=== PATIENT | male | born 1985 | race Caucasian/White ===

== ENCOUNTER 2019-06-19 01:03 | Emergency (ER) | payer SELFPAY ==
[2019-06-19 01:06] VITALS: BP 118/83; PULSE 64; RESP 22; TEMP 36.7; O2SAT 98
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
[2019-06-19] MEDS: Benzonatate 100 MG CAP PO (01:31)
[2019-06-19 01:40] VITALS: BP 118/83; PULSE 64; RESP 22; TEMP 36.7; O2SAT 98
== END 2019-06-19 01:35 | disposition home or self-care (01) ==
LOC: ER 01:44
PROVIDERS: Emergency Provider Emergency Medicine; PCP Nurse Practitioner Family
DX: J06.9 Acute upper respiratory infection, unspecified (principal); F17.210 Nicotine dependence, cigarettes, uncomplicated
CPT/HCPCS: 99283

== ENCOUNTER 2021-08-04 03:50 | Outpatient (CLI) | payer SELFPAY ==
[2021-08-04 14:37] LABS: HGB 15.5 g/dL (13.5-17.5); MCH 29.5 pg (27.0-33.0); MCHC 33.7 % (32.0-36.0); MCV 87.6 fL (80-95); MPV 9.6 fL (8.0-11.0); Platelet Count 301 10^3/uL (130-400); RBC 5.25 10^6/uL (4.36-5.78); RDW 11.9 % (11.8-14.1); RDW-SD 38.7 fL; WBC 7.71 10^3/uL (4.4-10.8)
[2021-08-04 15:46] LABS: ALT 21 U/L (16-63); AST 10 U/L (15-37); Albumin 4.8 g/dL (3.4-5.0); Alkaline Phosphatase 73 U/L (46-116); Anion Gap 9.7 mmol/L (3-11); BUN 16 mg/dL (7-18); Bilirubin, Total 0.5 mg/dL (0.2-1.0); CO2 27.3 mmol/L (21.0-32.0); Calcium 9.4 mg/dL (8.5-10.1); Calculated LDL 119 mg/dL (<100); Chloride 105 mmol/L (98-107); Cholesterol 179 mg/dL (<200); Glucose 87 mg/dL (74-106); HDL Cholesterol 46 mg/dL (40-60); Potassium 4.2 mmol/L (3.5-5.1); Sodium 142 mmol/L (136-145); TSH (W/Ref FT4) 1.03 uIU/mL (0.36-3.74); Triglyceride 72 mg/dL (<150)
[2021-08-07 11:14] LABS: Hepatitis C Ab w Rflx HCV PCR Negative (Negative)
[2021-08-07 13:13] LABS: HIV-1/2 Ag & Ab Screen Reactive (Negative)
[2021-08-16 11:30] LABS: HIV 1 Ab Diff Negative (Negative); HIV 2 Ab Diff Negative (Negative)
== END 2021-08-04 03:51 | disposition home or self-care (01) ==
LOC: LBO 03:50
PROVIDERS: PCP Family Medicine; Visit Provider Family Medicine
DX: K62.5 Hemorrhage of anus and rectum (principal); Z11.59 Encounter for screening for other viral diseases; Z13.6 Encounter for screening for cardiovascular disorders; I10 Essential (primary) hypertension; Z11.4 Encounter for screening for human immunodeficiency virus [HIV]
CPT/HCPCS: 36415; 80053; 80061; 85027; 86701; 86702; 86803; 87389; 84443

== ENCOUNTER 2021-10-10 07:27 | Day surgery (SDC) | payer SELFPAY ==
--- NOTE | 2021-10-09 10:07 | PDOC.DSDIS_ITS ---
Discharge Plan Disposition Patient Disposition: HOME Condition: Good Discharge Details Reason For Visit: colon scope Attending Provider: Chanelle Avila Primary Care Provider: Eugenio Peterson Home Meds and New Rx's Prescriptions: No Action 0.2% topical Nifedipine ointment See Rx Instructions GA TID Qty: 2 0RF Rx Instructions: applicator GA three times a day; Called to [facility] polyethylene glycol 3350 17 gram/dose powder 238 g PO ONCE Qty: 238 0RF Rx Instructions: take per colonoscopy instructions bisacodyl [Dulcolax (bisacodyl)] 5 mg tablet,delayed release (DR/EC) 5 mg PO ONCE Qty: 4 0RF Rx Instructions: take per colonoscopy instructions hydrocortisone acetate 25 mg suppository 25 mg GA BID 7 Days Qty: 14 6RF multivitamin [Multiple Vitamins] Tablet 1 tab PO DAILY 0RF ibuprofen 800 MG tablet 800 mg PO TID PRN PRNQty: 90 3RF acetaminophen [Acetaminophen Extra Strength] 500 MG tablet 1,000 mg PO TID Qty: 180 3RF Discharge Instructions Additional Instructions: [facility] Colonoscopy Post- Op Instructions Instructions for Everyone who is given Anesthesia: For your safety, please do the following for the next twenty-four (24) hours: *Do Not operate a motor vehicle (car, truck, motorcycle, etc.) *Do Not drink alcoholic beverages or use any recreational drugs for the first 24 hours or while taking pain medications. The medications in your body may have a reaction that can be dangerous. *Do Not make any important decisions or sign any important papers. Findings: polyps x2 diverticula Grade III hemorrhoids x2 anal fissure In 48 hrs (), start a fiber product such as benefiber or citracel daily. Follow up: 2 week stop hydrocortisone suppository's continue to use nifedipine ointment 1. No lifting over 20 pounds or strenuous activity for the first 24 hours after your procedure. After 24 hours there are no restrictions on your activity but you may feel fatigued for a few days. 2. After you arrive home you may have a light meal and return to your normal diet as you can tolerate it without feeling sick to your stomach. 3. You may have a bloated, gaseous feeling in your belly (abdomen) after a colonoscopy. Passing gas and belching will help. Walking or lying down on your left side with your knees flexed may relieve the discomfort. Call the office at [phone] (Office) or [phone] (Hospital) right away if you notice any of the following: a.Vomiting of blood or ?coffee ground stools?. b.Rectal bleeding 1Tbsp, blood clots or continuous bleeding. c.Severe belly (abdominal) pain. d.A hard distended belly (abdomen) and an inability to pass gas. 4. Please don?t expect to have a normal BM (bowel movement) for 2-3 days after your procedure. 5. If there are questions regarding the findings of your procedure, please contact your doctor 6. If you are unable to contact your doctor with a problem, contact the hospital at [phone]. 7. Continue all your regular medications unless directed otherwise. Pain Relief From Hemorrhoids Hemorrhoid banding itself is not painful, but it is normal for patients to experience a sense of fullness or pressure after the procedure. Tylenol or Ibuprofen usually alleviates any symptoms. Post-Procedure Do's & Don'ts Do?s: ? Take fiber supplements to avoid constipation ? Squeeze your buttocks muscles 10-15 times every two hours ? Take 10-15 deep breaths every 1-2 hours ? Drink plenty of water ? Engage in moderate exercise ? Take a sitz bath ? soaking in a tub of warm water ? after every bowel movement Don?ts: ? Stay seated for more than 2-3 hours ? Rub or scrub the anus too vigorously ? Try to force a bowel movement ? if you cannot go, stop and try again later ? Insert anything into the anus for two weeks ? unless you have been prescribed anorectal medication ? Avoid alcohol, as it can dehydrate you and lead to constipation Occasionally, you may experience bleeding after the hemorrhoid banding p rocedure. Do not be concerned if there is a minimal amount of blood. However, if bleeding continues, lie flat with your bottom higher than your head and apply an ice pack to the area. If the bleeding does not stop within a half-hour, call our office or go to the emergency room. Bleeding complications are uncommon and occur <1% of the time. Additional Tips ? To avoid constipation, take two tablespoons of natural wheat bran, natural oat bran, flax, Benefiber or any over the counter fiber supplement with 7-8 glasses of water. ? I understand the above instructions and have no questions. Signature of Patient or Adult Escort Name of Responsible Adult Escort Signature of Nurse Date/Time Discharge Orders Discharge Orders: Discharge Order (Routine); Ordered 10/09/21 Ordered By: Chanelle Avila
--- NOTE | 2021-10-09 19:12 | W.COLOREPORT ---
Colonoscopy Report Date of procedure: 10/10/21 Pre-op diagnosis general: rectal pain/bleeding/hx of polyps Post-op diagnosis procedure note: other (polyps/diverticula/hemorrhoids/anal fissure) Procedure: CE and hemorrhoid bandingg x3 Surgeon: Chanelle Avila Anesthesia Type: General:No Airway Estimated blood loss (mL): 1 Pathology: other Complications: None Disposition: same day Prep: Miralax/Dulcolax Retraction Time: 10 Procedure Description: After informed consent was obtained the patient was taken to the procedure room and placed in a left decubitous position. Monitors were applied and a time out was done. The patients name, date of , procedure, allergies to medications and metal in their body was reviewed. The patient was then sedated. Once sedated and comfortable a rectal exam was done. External exam does show an anal fissure in the 6oclock position. The scope was then introduced and retrofelexed. X3 Grade III internal hemorrhoids were identified. The scope was then advanced to the cecum w/out difficulty. The TI and appendiceal orifice were identified. The prep was BBPS- 3 in all quandrants for a total of 9. The scope was then slowly retracted over 10 minutes back into the rectum. He has x2 polyps. Each of these is a small, flat, 5 mm polyp. They are each removed with 1 bite of the cold biting forcep. There is 1 in the rectum and another at 20 cm. All specimen is retrieved and no bleeding is noted. He does have minor diverticula throughout the entire colon. There is no signs of active bleeding or infection. The mucosa is otherwise pink and healthy with a normal vascular pattern. Scope was removed. Anal exam was done with the patient still under anesthesia again he has a anal fissure in the 6 o'clock position that shows minimal signs of healing. It does have a sentinel tag associated with this. He also has grade 3 internal hemorrhoids in all 3 columns. These are banded. There is no bleeding noted. Patient was woken up and taken back to Same day surgery in stable condition. The patient tolerated the procedure well and there were no immediate complications. Follow up: The patient should follow up in 5 yrs, path pd, unless they develop changes in bowel habits or other new gastrointestinal complaints.
[2021-10-10] VITALS (8 sets, daily range): BP systolic 120–136; BP diastolic 83–105; PULSE 71–106; RESP 18–24; TEMP 36.4–37.1; O2SAT 95–100; BMI 19.7
[2021-10-10] MEDS: Lactated Ringers 1,000 ML 80 ML IV (08:00)
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
--- NOTE | 2021-10-10 10:10 | BOWEL_PTH ---
PATIENT: Kb Sheikh LOC: [facility] U#:[id number] AGE/SX: 36/M ROOM: RE10/10/[address]: Chanelle Avila : 1985 BED: DIS: 10/10/2021 SPEC #: [id number] RECD: 10/10/21 12:54 STATUS: EMILY REQ #: [id number] TANNA: 10/10/21 10:[address]: Chanelle Avila DEPT: Surgical Specimen RECD BY: Lis Rodríguez ENTERED: 10/10/21 12:55 SP TYPE: Bowel OTHR DR: Eugenio Peterson Tissues: 1 - BIOPSY BOWEL 2 - BIOPSY BOWEL Procedures: GROSS AND MICRO LEVEL 4 Comments: [id number]
[2021-10-10] MEDS: Acetaminophen 500 MG TAB 1000 MG PO (10:50)
[2021-10-10] MEDS: Ketorolac 15 MG/ML VIAL IVP (10:50)
[2021-10-10] MEDS: Dibucaine 1% 28 GM TUBE PR (10:54)
[2021-10-10] MEDS: MORPHine 4 MG/ML SYR 2 MG IVP (11:12)
[2021-10-10] MEDS: fentaNYL 100 MCG/2 ML VIAL IVP (12:07)
[2021-10-10] MEDS: Normal Saline Flush 10 ML SYR IV ×2 (12:07→12:15)
[2021-10-10] MEDS: LORazepam 2 MG/ML VIAL 0.5 MG IVP (12:12)
--- NOTE | 2021-10-10 12:26 | PDOC.DSDIS_ITS ---
Discharge Plan Disposition Patient Disposition: HOME Condition: Good Discharge Details Reason For Visit: colon scope Attending Provider: Chanelle Avila Primary Care Provider: Eugenio Peterson Home Meds and New Rx's Prescriptions: New dibucaine 1 % ointment 1 applic GA QID PRNQty: 56 6RF metaxalone [Skelaxin] 800 mg tablet 800 mg PO TID PRNQty: 60 2RF Continued 0.2% topical Nifedipine ointment See Rx Instructions GA TID Qty: 2 0RF Rx Instructions: applicator GA three times a day; Called to [facility] multivitamin [Multiple Vitamins] Tablet 1 tab PO DAILY 0RF ibuprofen 800 MG tablet 800 mg PO TID PRN PRNQty: 90 3RF acetaminophen [Acetaminophen Extra Strength] 500 MG tablet 1,000 mg PO TID Qty: 180 3RF Discontinued polyethylene glycol 3350 17 gram/dose powder 238 g PO ONCE Qty: 238 0RF Rx Instructions: take per colonoscopy instructions bisacodyl [Dulcolax (bisacodyl)] 5 mg tablet,delayed release (DR/EC) 5 mg PO ONCE Qty: 4 0RF Rx Instructions: take per colonoscopy instructions hydrocortisone acetate 25 mg suppository 25 mg GA BID 7 Days Qty: 14 6RF Discharge Instructions Additional Instructions: [facility] Colonoscopy Post- Op Instructions Instructions for Everyone who is given Anesthesia: For your safety, please do the following for the next twenty-four (24) hours: *Do Not operate a motor vehicle (car, truck, motorcycle, etc.) *Do Not drink alcoholic beverages or use any recreational drugs for the first 24 hours or while taking pain medications. The medications in your body may have a reaction that can be dangerous. *Do Not make any important decisions or sign any important papers. Findings: polyps x2 diverticula Grade III hemorrhoids x2 anal fissure In 48 hrs (), start a fiber product such as benefiber or citracel daily. Follow up: 2 week stop hydrocortisone suppository's continue to use nifedipine ointment 1. No lifting over 20 pounds or strenuous activity for the first 24 hours after your procedure. After 24 hours there are no restrictions on your activity but you may feel fatigued for a few days. 2. After you arrive home you may have a light meal and return to your normal diet as you can tolerate it without feeling sick to your stomach. 3. You may have a bloated, gaseous feeling in your belly (abdomen) after a colonoscopy. Passing gas and belching will help. Walking or lying down on your left side with your knees flexed may relieve the discomfort. Call the office at [phone] (Office) or [phone] (Hospital) right away if you notice any of the following: a.Vomiting of blood or ?coffee ground stools?. b.Rectal bleeding 1Tbsp, blood clots or continuous bleeding. c.Severe belly (abdominal) pain. d.A hard distended belly (abdomen) and an inability to pass gas. 4. Please don?t expect to have a normal BM (bowel movement) for 2-3 days after your procedure. 5. If there are questions regarding the findings of your procedure, please contact your doctor 6. If you are unable to contact your doctor with a problem, contact the hospital at [phone]. 7. Continue all your regular medications unless directed otherwise. Pain Relief From Hemorrhoids Hemorrhoid banding itself is not painful, but it is normal for patients to experience a sense of fullness or pressure after the procedure. Tylenol or Ibuprofen usually alleviates any symptoms. Post-Procedure Do's & Don'ts Do?s: ? Take fiber supplements to avoid constipation ? Squeeze your buttocks muscles 10-15 times every two hours ? Take 10-15 deep breaths every 1-2 hours ? Drink plenty of water ? Engage in moderate exercise ? Take a sitz bath ? soaking in a tub of warm water ? after every bowel movement Don?ts: ? Stay seated for more than 2-3 hours ? Rub or scrub the anus too vigorously ? Try to force a bowel movement ? if you cannot go, stop and try again later ? Insert anything into the anus for two weeks ? unless you have been prescribed anorectal medication ? Avoid alcohol, as it can dehydrate you and lead to constipation Occasionally, you may experience bleeding after the hemorrhoid banding procedure. Do not be concerned if there is a minimal amount of blood. However, if bleeding continues, lie flat with your bottom higher than your head and apply an ice pack to the area. If the bleeding does not stop within a half-hour, call our office or go to the emergency room. Bleeding complications are uncommon and occur <1% of the time. Additional Tips ? To avoid constipation, take two tablespoons of natural wheat bran, natural oat bran, flax, Benefiber or any over the counter fiber supplement with 7-8 glasses of water. ? I understand the above instructions and have no questions. Signature of Patient or Adult Escort Name of Responsible Adult Escort Signature of Nurse Date/Time Discharge Orders Discharge Orders: Discharge Order (Routine); Ordered 10/09/21 Ordered By: Chanelle Avila
--- NOTE | 2021-10-10 14:26 | W.ANESPOSTOP ---
Postoperative Evaluation Date, Time and Location Date Performed: 10/10/21 Time Performed: 12:30 Patient Location: Day Surgery Unit Vital Signs Most Recent Imported Vital Signs: Most Recent Vital Signs Temp Pulse Resp BP Pulse Ox 36.6 C 71 18 136/83 96 10/10/21 12:30 10/10/21 12:30 10/10/21 12:30 10/10/21 12:30 10/10/21 12:30 Pain Score Most Recent Pain Score: Most Recent Pain Score Pain Level 0 10/10/21 12:30 Assessment Mental Status: Awake (Alert & Oriented to Patient Baseline) Airway and Respiratory Function: Patent airway with normal (patient baseline) respiratory exam Cardiovascular Function: Hemodynamically Stable Hydration Status: Adequately Hydrated Nausea & Vomiting: No Nausea or Vomiting Pain: Pain is tolerable per patient (Reports not as pain but severe pressure. Being treated by DSU RN. ) Peripheral Nerve Block: Patient did not receive a nerve block
== END 2021-10-10 13:01 | disposition home or self-care (01) ==
LOC: SUR 07:28
PROVIDERS: PCP Family Medicine; Visit Provider Surgery
PROC: 0DJD8ZZ Inspection of Lower Intestinal Tract, Via Natural or Artificial Opening Endoscopic (ICD-10-PCS; CPT 45378; principal; 2021-10-10 10:00)
DX: K62.5 Hemorrhage of anus and rectum (principal); K63.5 Polyp of colon; K57.30 Diverticulosis of large intestine without perforation or abscess without bleeding; K62.1 Rectal polyp; K64.2 Third degree hemorrhoids; K60.2 Anal fissure, unspecified; Z86.010 Personal history of colon polyps; F12.90 Cannabis use, unspecified, uncomplicated; F90.9 Attention-deficit hyperactivity disorder, unspecified type; F31.9 Bipolar disorder, unspecified
CPT/HCPCS: 45380; 46221; 88305; J1885; J2060; J2250; J2270; J3010

== ENCOUNTER 2022-10-05 11:05 | Emergency (ER) | payer SELFPAY ==
--- NOTE | 2022-10-05 11:00 | RT.EKG_ITS ---
APPROVED REPORT Exam: Resting ECG Reason for Exam: chest pain Patient Location: E HR:61 bpm ECG Measurements Heart Rate 61 AXIS MN 166 P 48 QRSd 96 QRS 80 QT 383 T 58 QTc 388 Conclusion Sinus rhythm...normal P axis, V-rate 60- 99 ST elev, probable normal early repol pattern...ST elevation, age<55
[2022-10-05 11:06] VITALS: BP 143/93; PULSE 64; RESP 18; O2SAT 100
[2022-10-05 11:10] VITALS: RESP 18; TEMP 37
--- NOTE | 2022-10-05 11:30 | DI.RAD_ITS ---
Exam(s) XR CHEST 2V PA LATERAL EXAM: XR CHEST 2V PA LATERAL CLINICAL HISTORY: chest pain. TECHNIQUE: 2D digital imaging was performed. COMPARISON: No exams were available for comparison FINDINGS: 2 views: Heart size is normal. The mediastinum is not widened. Lungs are clear. No infiltrates nor pleural effusions. There is no pneumothorax evident. IMPRESSION: No acute pulmonary findings. DATA REPOSITORY: RADIATION DOSE DELIVERED:
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
[2022-10-05 11:49] LABS: Abs Immature Grans 0.03 10^3/uL (0.0-0.06); Absolute Basophil Count 0.07 10^3/uL (0.0-0.2); Absolute Eosinophil Count 0.17 10^3/uL (0.0-0.7); Absolute Lymphocyte Count 2.15 10^3/uL (1.2-3.4); Basophils % 0.9; Eosinophils % 2.1; HCT 44.8 % (40.0-50.0); Immature Grans % 0.4; Lymphocytes % 26.5; MCHC 35.7 % (32.0-36.0); MCV 87 fL (80-95); MPV 9.8 fL (8.0-11.0); Monocytes % 8.6; Neutrophils % 61.5; Platelet Count 267 10^3/uL (130-400); RBC 5.16 10^6/uL (4.36-5.78); RDW 12.1 % (11.8-14.1); RDW-SD 38.7 fL; WBC 8.12 10^3/uL (4.4-10.8)
[2022-10-05 12:08] LABS: ALT 23 U/L (16-63); AST 17 U/L (15-37); Albumin 4.1 g/dL (3.4-5.0); Alkaline Phosphatase 63 U/L (46-116); Anion Gap 6.2 mmol/L (3-11); BUN 15 mg/dL (7-18); Bilirubin, Total 0.5 mg/dL (0.2-1.0); CO2 26.8 mmol/L (21.0-32.0); CREATININE 0.9 mg/dL (0.70-1.30); Chloride 103 mmol/L (98-107); Estimated GFR 113.51 (mL/min/1.73m2); Glucose 90 mg/dL (74-106); Magnesium 1.9 mg/dL (1.8-2.4); Potassium 3.9 mmol/L (3.5-5.1); Sodium 136 mmol/L (136-145); Total Protein 7.2 g/dL (6.4-8.2); Troponin I < 50 ng/L (<or=60)
[2022-10-05 14:33] LABS: Troponin I < 50 ng/L (<or=60)
[2022-10-05 14:58] VITALS: BP 121/84; PULSE 62; TEMP 36.4; O2SAT 96
== END 2022-10-05 14:58 | disposition home or self-care (01) ==
PROVIDERS: Emergency Provider Student in an Organized Health Care Education/Training Program; PCP Nurse Practitioner Family
DX: R07.9 Chest pain, unspecified (principal)
CPT/HCPCS: 36415; 80053; 93005; 99283; 71046; 83735; 84484; 85025; 93010